=== PATIENT | male | born 1950 | race Caucasian/White ===

== ENCOUNTER 2018-01-02 10:18 | Emergency (ER) | payer OTHER, MEDICARE ==
[~2018-01-02] VITALS: Ht 185.4 cm; Wt 134.0 kg
[2018-01-02 10:20] VITALS: BP 201/100; PULSE 65; RESP 18; TEMP 98; O2SAT 94
--- NOTE | 2018-01-02 11:16 | PD ---
HPI Chief Complaint: Back/ Neck Pain or Injury Time Seen by Provider: 10:28 Travel History International Travel<30 days: No Contact w/Intl Traveler<30days: No Traveled to known affect area: No History of Present Illness HPI 67-year-old male presents emergency department status post workplace accident, consisting of low back pain and right groin pain status post moving some paving stones while working at [employer]. Patient states the injury occurred on Friday, and he felt it would just improve after several days of taking Naprosyn and rest. He states his low back pain is improved but he continues to have right testicular pain and groin pain, since Friday. He states no fever, chills, obvious lumps or bumps, he denies erythema, or changes in urination or bowels. Pain is about a 6 out of 10 and sometimes worse with certain positions. He states it worsens with extended walking or sitting in certain positions. He denies rash. He has no known drug allergies. PFSH Past Medical History Medical History: Denies Significant Hx Diminished Hearing: No Immunizations Current: Yes Tetanus Vaccination: < 5 Years Past Surgical History Other Surgery: Yes (HERNIA, CARPAL TUNNEL) Social History Alcohol Use: Yes (SOCIALLY) Tobacco Use: No Substance Use: No Allergies-Medications (Allergen,Severity, Reaction): Coded Allergies: No Known Allergies (Unverified , 01/02/18) Review of Systems Except as stated in HPI: all other systems reviewed are Neg General / Constitutional: No: Fever Eyes: No: Visual changes HENT: No: Headaches Cardiovascular: No: Chest Pain or Discomfort Respiratory: No: Shortness of Breath Gastrointestinal: Positive: Abdominal Pain (Right groin pain), No: Nausea, Vomiting, Diarrhea, Constipation, Changes in Bowel Habits, Indigestion, Dysphagia, Loss of Appetite Genitourinary: Positive: Other (Right testicular pain), No: Urgency, Dysuria, Pelvic Pain, Flank Pain Musculoskeletal: Positive: Other (See history of present illness), No: Myalgias , Arthralgias, Limited ROM, Pain Skin: No Rash Neurologic: No: Weakness Psychiatric: No: Depression Endocrine: No: Polydipsia Hematologic/Lymphatic: No: Easy Bruising Physical Exam Narrative GENERAL: Patient appears in no obvious distress. He is moderately obese SKIN: Warm and dry. Normal color. Normal turgor. No rash. HEAD: Atraumatic. Normocephalic. EYES: Pupils equal and round. No scleral icterus. No injection or drainage. ENT: No nasal bleeding or discharge. Mucous membranes pink and moist. Pharynx is clear. Airways patent. NECK: Trachea midline. Supple nontender. CARDIOVASCULAR: Regular rate and rhythm. RESPIRATORY: No accessory muscle use. Clear to auscultation. Breath sounds equal bilaterally. GASTROINTESTINAL: Abdomen soft, non-tender, nondistended. Hepatic and splenic margins not palpable. Patient is mild to moderate discomfort with palpation to the right inguinal region without obvious testicular swelling, herniation, or other findings. MUSCULOSKELETAL: Extremities without clubbing, cyanosis, or edema. No obvious deformities. Lumbar back is nontender with palpation. Negative straight leg raise pain patient is able to stand on each foot independently. NEUROLOGICAL: Awake and alert. No obvious cranial nerve deficits. Motor grossly within normal limits. Five out of 5 muscle strength in the arms and legs. Normal speech. PSYCHIATRIC: Appropriate mood and affect; insight and judgment normal. Data Data Last Documented VS Vital Signs Date Time Temp Pulse Resp B/P (MAP) Pulse Ox O2 Delivery O2 Flow Rate FiO2 01/02/18 10:20 98.0 65 18 201/100 (133) 94 Orders Orders Us Testicles W Doppler (01/02/18 10:37) MDM Medical Decision Making Medical Screen Exam Complete: Yes Emergency Medical Condition: Yes Differential Diagnosis Workplace injury. Groin pull. Testicular pain. Possible hernia. Lumbar strain Narrative Course Patient is medically stable at time of exam. X-rays were not felt warranted based on my history and physical. Ultrasound of the right groin and testicle is ordered to rule out herniation, or testicular injury. Ultrasound is negative for acute findings or obvious herniation. Patient be treated for low back strain and groin strain with Naprosyn 500 mg twice daily for 10 days Patient also given Mapap 500 mg 2 tabs every 6 hours as needed pain #60. Workers comp forms completed. Patient given restrictions 1 week Patient is to follow-up with workers comp provider if symptoms persist. Diagnosis Primary Impression: Work related injury Additional Impressions: Lumbar strain Qualified Codes: S39.012A - Strain of muscle, fascia and tendon of lower back , initial encounter Strain of muscle of right groin region Patient Instructions: Acute Low Back Pain (ED), General Instructions, Groin Strain (ED) Additional Instructions: Ultrasound is negative for acute findings or obvious herniation. Patient be treated for low back strain and groin strain with Naprosyn 500 mg twice daily for 10 days Patient also given Mapap 500 mg 2 tabs every 6 hours as needed pain #60. Workers comp forms completed. Patient given restrictions 1 week Patient is to follow-up with workers comp provider if symptoms persist. Med/Other Pt SpecificInfo: Prescription(s) given Disposition: 01 DISCHARGE HOME Condition: Stable Antwon Colin Jan 02, 2018 11:16
--- NOTE | 2018-01-02 12:48 | RADRPT ---
EXAM DATE/TIME: 01/02/2018 11:04 [facility] COMPARISON: No previous studies available for comparison. INDICATIONS : Testicular pain. MEDICAL HISTORY : Testicular pain. Trauma. SURGICAL HISTORY : None. ENCOUNTER: Initial ACUITY: 2 days PAIN SCORE: 3/10 LOCATION: Bilateral testicles. MEASUREMENTS: RIGHT TESTICLE: 4.7 x 3.5 x 3.0cm LEFT TESTICLE: 4.3 x 3.0 x 2.1cm FINDINGS: Flow is seen to the testicles bilaterally. Probable appendix testis the on the right side measuring a bout 5 mm in maximal diameter. No solid testicular masses. Multiple epididymal cysts bilaterally, subcentimeter. Small to moderate bilateral hydroceles. CONCLUSION: 1. Normal testicular blood flow. Small to moderate bilateral hydroceles. Epididymal cysts bilaterally . No testicular mass. Vikram Byrd MD on January 02, 2018 at 12:45 Board Certified Radiologist. This report was verified electronically.
[2018-01-02] MEDS ORDERED: NAPR500 PO (13:18)
[2018-01-02] MEDS ORDERED: MAPA500T13 PO (13:18)
== END 2018-01-02 13:52 | disposition home or self-care (01) ==
LOC: NEPD 10:18
DX: S39.012A Strain of muscle, fascia and tendon of lower back, initial encounter (principal); X50.9XXA Other and unspecified overexertion or strenuous movements or postures, initial encounter; Y93.89 Activity, other specified; Y92.513 Shop (commercial) as the place of occurrence of the external cause; Y99.0 Civilian activity done for income or pay
CPT/HCPCS: 76870; 93975; 99284